=== PATIENT | female | born 1985 | race Caucasian/White ===

== ENCOUNTER 2016-11-02 20:53 | Outpatient (CLI) | payer MEDICAID ==
[~2016-11-02 20:53] MED LIST: PRENAT PO
--- NOTE | 2016-11-02 22:32 | HP ---
Date/Time of Note Date/Time of Note DATE: 11/02/16 TIME: 22:14 OB - History Hx of Present Free Text/Dictation Laborist Note G1 with IUP at 38 weeks who reports to L&D for labor evaluation. she denies LOF per vagina. she denies vaginal bleeding. she reports decreased FM. Care: Good Care Ultrasounds: Normal mid trimester US Obstetrical Complications: None Medical Complications: None Past Family/Social History * Past Medical, Surgical, Family and Obstetric Histories reviewed from chart. OB Admission Exam Physical Exam HEENT: WNL Heart: Rhythm Normal Lungs: Clear, Equal Abdomen: WNL Extremities: Normal Reflexes: Normal Cervical Dilatation: None Effacement: 0% Station: -2 Membranes: Intact Accelerations: Accelerations Present Decelerations: No Decelerations Varibility: Moderate OB Assessment/Plan Other Assessment: * 38 weeks * decreased movement * r/o labor Other plan: * BPP * NST * Labor evaluation. if no change in her cervix then she is in false labor and may be discharged home with FKC and labor precautions. she agrees with this management. HITESH GONZALEZ MD Nov 02, 2016 22:25
--- NOTE | 2016-11-02 23:43 | RADRPT ---
PROCEDURE: US biophysical profile. CLINICAL INDICATION: DFM well-being. TECHNIQUE: Multiple sonographic images of the uterus were obtained. The images were revi ewed on a PACS workstation. COMPARISON: No prior studies are available for comparison. FINDINGS: There is a single live intrauterine gestation. heart rate is 148 beats per minute. The position is cephalic. The placenta is anterior, grade 2. The RAVINDRA is 19.5 cm. Breathing Movement: 2 Gross Body Movement: 2 Tone: 2 Qualitative Amniotic Fluid Volume: 2 TOTAL: 8 IMPRESSION: 1. Single viable intrauterine gestation. 2. Biophysical profile = 02/10. 3. RAVINDRA = 19.5 cm. RPTAT: HFN .Delroy Mullins MD, MD Date Time Electronically viewed and signed by .Delroy Mullins MD, MD on 11/02/2016 23:42 .N/
--- NOTE | 2016-11-03 01:42 | TRIAGE ---
OB Triage Datetime Report Generated by CPN: 11/03/2016 01:41 Datetime: 11/02/2016 23:45 Stage of : OB Triage Labor Evaluation Frequency: 0 Monitor Mode: External Duration (sec)2399: 0 Pattern: Normal: <= 5 Contractions in 10 Minutes Resting Tone [place]: Relaxed Contraction Comments: uterine irritiability noted. Heart Rate FHR Baseline Rate: 125 Monitor Mode: External US Variability: Moderate 6-25 bpm Accelerations: 15X15 Decelerations: None Category: Category I Pain Assessment Pain Scale: 0 Pain Presence: None/Denies Pain Type: N/A Pain Goal: 0 Datetime: 11/02/2016 23:00 Stage of : OB Triage Labor Evaluation Frequency: 0 Monitor Mode: External Duration (sec)2399: 0 Pattern: Normal: <= 5 Contractions in 10 Minutes Resting Tone [place]: Relaxed Heart Rate FHR Baseline Rate: 140 Monitor Mode: External US Variability: Moderate 6-25 bpm Accelerations: 15X15 Decelerations: None Category: Category I Datetime: 11/02/2016 22:42 Stage of : OB Triage Datetime: 11/02/2016 22:31 Time of Arrival: 11/02/2016 20:55 EGA: 38.3 Arrived By: Wheelchair Arrived From: Home Chief Complaint: UCS SINCE 1700, DFM Movement: Decreased Contractions: Irregular Time Contractions Began: 11/02/2016 17:00 Contractions: IRREGULAR Rupture of Membranes: Denies Vaginal Bleeding: None Vaginal Discharge: Denies Recent Sexual Intercouse: Denies Abdominal Trauma: Not Applicable Patient Complaints: Contractions Time Provider Notified: 11/03/2016 21:45 Provider Notified: Andrzej Initial Plan: VS, EFM, SVE, BPP Datetime: 11/02/2016 22:12 Stage of : OB Triage Datetime: 11/02/2016 22:00 Stage of : OB Triage Labor Evaluation Frequency: occasional Monitor Mode: External Duration (sec)2399: 70-90 Quality: Mild Pattern: Normal: <= 5 Contractions in 10 Minutes Resting Tone [place]: Relaxed Contraction Comments: pt. denies feeling UC's at this time. Heart Rate FHR Baseline Rate: 145 Monitor Mode: External US Variability: Moderate 6-25 bpm Accelerations: 15X15 Decelerations: None Category: Category I Pain Assessment Pain Scale: 0 Pain Presence: None/Denies Pain Type: N/A Pain Goal: 0 Datetime: 11/02/2016 21:30 Maternal Assessment Level of Consciousness: Fully Conscious DTR's/Clonus: DTRs 2+ Headache: Denies Blurred Vision: No Respiratory Effort: Unlabored Breath Sounds, Left: Clear and Equal Breath Sounds, Right: Clear and Equal Nausea/Vomiting: Denies RUQ Epigastric Pain: Denies Facial Edema: None Labor Evaluation Frequency: X1 WITH UTERINE IRRITABILITY Monitor Mode: External Duration (sec)2399: 10 OR 60 Quality: Mild Pattern: Normal: <= 5 Contractions in 10 Minutes Resting Tone [place]: Relaxed Heart Rate FHR Baseline Rate: 145 Monitor Mode: External US FHR Baseline Changes: No Baseline Change Variability: Moderate 6-25 bpm Accelerations: None Decelerations: None Category: Category I Vaginal Exam Dilatation (cms): 0.0 Effacement (%): 30 Station: -3 Exam By: DENNYS MARINO RN Membrane Status: Intact Vaginal Bleeding: None Cervix, Consistency: Soft Cervix, Position: Posterior Presentation 'A': Cephalic Lie 'A': Unable to Assess Datetime: 11/02/2016 21:06 Stage of : OB Triage Monitor Mode: External Monitor Mode: External US Datetime: 07/01/2016 09:00 Monitor Mode: External Resting Tone [place]: Relaxed Datetime: 07/01/2016 07:57 Time of Arrival: 11/02/2016 20:50 EGA: 38.3 Arrived By: Wheelchair Arrived From: Home Chief Complaint: C/O UTCS SINCE 1700 WITH 4/10, LOOSE STOLLS X 3 DAYS WITH EARLY MILD CRAMPING Movement: Present Contractions: Regular Time Contractions Began: 11/02/2016 17:00 Contractions: 2-3 Rupture of Membranes: Denies Vaginal Bleeding: None Vaginal Discharge: Denies Patient Complaints: Contractions; Cramping Additional Patient Complaints: PT STATES FETAS "NOT MOVING" Initial Plan: VSS, MONITORING OF FHR AND UTERINE ACTIVITY, OB ASSESSMENT, HX Datetime: 07/01/2016 07:53 Fall Risk Assessment Fall Score: 0 Fall Risk Score Definition: No Risk: No action required
== END 2016-11-02 23:55 | disposition home or self-care (01) ==
LOC: OBT 20:53 → L-D 20:54 → OBT 23:55
PROVIDERS: ATTEND Obstetrics & Gynecology
DX: O36.8130 Decreased fetal movements, third trimester, not applicable or unspecified (principal); Z3A.38 38 weeks gestation of pregnancy
CPT/HCPCS: 76818; Z7500; G0463

== ENCOUNTER 2016-11-12 13:40 | Outpatient (CLI) | payer MEDICAID ==
[~2016-11-12] VITALS: Ht 149.9 cm; Wt 70.8 kg
[2016-11-12 14:33] VITALS: BP 125/83; PULSE 88; RESP 16; Ht 149.9 cm; Wt 70.8 kg
--- NOTE | 2016-11-12 15:12 | HP ---
Date/Time of Note Date/Time of Note DATE: 11/12/16 TIME: 15:07 OB - History Hx of Present Free Text/Dictation OB Triage Pt is a 30yo G1 at 39+4 presenting with c/o painful UCs since 08 approx q20 min. Feels UCs have spaced out since she has been in triage. Reports normal FM, denies VB or LOF. Estimated Due Date: November 15, 2016 : 1 Care: Good Care Obstetrical Complications: None OB Admission Exam Vital Signs Vital Signs Vital Signs Date Time Temp Pulse Resp B/P Pulse Ox O2 Delivery O2 Flow Rate FiO2 11/12/16 14:33 98.1 88 16 125/83 Physical Exam Cervical Dilatation: other (Fingertip) Effacement: 0% Station: -3 (posterior) Heart Rate: 140's (baseline change to 130s) Accelerations: Accelerations Present Decelerations: No Decelerations Varibility: Moderate Contractions on Admission: 6-10 Minutes Apart (irregular UCs) OB Assessment/Plan Other Assessment: Contractions w/o labor Reactive NST Other plan: Pt appropriate for d/c home with outpatient f/up as scheduled tomorrow Labor, ROM and FKC precautions reviewed Pt verbalized understanding of teaching VIVIANE DUVALL MD November 12, 2016 15:12
--- NOTE | 2016-11-12 15:43 | TRIAGE ---
OB Triage Datetime Report Generated by CPN: 11/12/2016 15:43 Datetime: 11/12/2016 15:15 Labor Evaluation Frequency: 4 Monitor Mode: External Duration (sec)2399: 60-80 Quality: Mild Pattern: Normal: <= 5 Contractions in 10 Minutes Resting Tone [place]: Relaxed Heart Rate FHR Baseline Rate: 135 Monitor Mode: External US Variability: Moderate 6-25 bpm Accelerations: 15X15 Decelerations: None Category: Category I Pain Assessment Pain Scale: 3 Pain Presence: Intermittent Pain Type: Contraction Pain Location: Abdomen Pain Goal: 3 Datetime: 11/12/2016 14:56 Labor Evaluation Frequency: 145 Monitor Mode: External Quality: Mild Pattern: Normal: <= 5 Contractions in 10 Minutes Resting Tone [place]: Relaxed Heart Rate FHR Baseline Rate: 145 Monitor Mode: External US Variability: Moderate 6-25 bpm Accelerations: 15X15 Decelerations: None Category: Category I Pain Assessment Pain Scale: 5 Pain Presence: Intermittent Pain Type: Contraction Pain Location: Abdomen Pain Goal: 3 Datetime: 11/12/2016 14:35 Vaginal Exam Dilatation (cms): 0.5 Exam By: wliu Datetime: 11/12/2016 14:31 Assessment Type: Triage Maternal Assessment Level of Consciousness: Fully Conscious DTR's/Clonus: DTRs 2+; No Clonus Headache: Denies Blurred Vision: No Respiratory Effort: Unlabored; Regular Rhythm; Equal Expansion Breath Sounds, Left: Clear and Equal Breath Sounds, Right: Clear and Equal Nausea/Vomiting: Denies RUQ Epigastric Pain: Denies Facial Edema: None Fall Risk Assessment History of Falling: (0) No Secondary Diagnosis: (0) No Ambulatory Aid: (0) Bedrest/Nurse Assist IV Therapy: (0) No Gait: (0) Normal/Bedrest/Immobile Mental Status: (0) Oriented to Own Ability Fall Score: 0 Fall Risk Score Definition: No Risk: No action required Datetime: 11/12/2016 14:30 Time of Arrival: 11/12/2016 13:30 EGA: 39.4 Arrived By: Ambulatory Arrived From: Home Chief Complaint: Pt. came to hospital c/o uc since 0830am, q 20mins apart, pain level 5/10, deny v ag. bleeding, deny srom Movement: Present Contractions: Irregular Rupture of Membranes: Denies Vaginal Bleeding: None Vaginal Discharge: Denies Recent Sexual Intercouse: Denies Abdominal Trauma: Not Applicable Patient Complaints: Contractions Time Provider Notified: 11/12/2016 14:54 Provider Notified: Initial Plan: r/o labor Datetime: 11/02/2016 22:31 EGA: 38.1 Datetime: 07/01/2016 07:57 EGA: 38.1 Datetime: 07/01/2016 07:53 Fall Score: 0 Fall Risk Score Definition: No Risk: No action required
== END 2016-11-12 15:26 | disposition home or self-care (01) ==
LOC: OBT 13:40 → L-D 13:41 → OBT 15:26
PROVIDERS: ATTEND Obstetrics & Gynecology
DX: O62.9 Abnormality of forces of labor, unspecified (principal); Z3A.39 39 weeks gestation of pregnancy

== ENCOUNTER 2016-11-18 23:35 | Inpatient (IN) | payer MEDICAID ==
[~2016-11-18] VITALS: Ht 149.9 cm; Wt 70.7 kg
[2016-11-18 23:57] VITALS: Ht 149.9 cm; Wt 70.7 kg
[2016-11-18 23:58] VITALS: BP 134/74; PULSE 86; RESP 18
[2016-11-19] MEDS ORDERED: IBUPROFEN 600 MG TAB PO PRN (00:30)
[2016-11-19] MEDS ORDERED: MISOPROSTOL 200 MCG TAB PR PRN ×2 (00:30→23:00)
[2016-11-19] MEDS ORDERED: BUTORPHANOL 2 MG INJ IV PRN ×2 (00:30)
[2016-11-19] MEDS ORDERED: CARBOPROST 250 MCG INJ IM PRN ×2 (00:30→23:00)
[2016-11-19] MEDS ORDERED: METHYLERGONOVINE 0.2 MG INJ IM PRN ×2 (00:30→23:00)
[2016-11-19] MEDS ORDERED: OXYTOCIN 30 UNITS/LR 500 ML IV PRN ×2 (00:30→23:00)
[2016-11-19] MEDS ORDERED: OXYTOCIN 30 UNITS/LR 500 ML IV SCH ×3 (00:30→10:00)
[2016-11-19] MEDS ORDERED: LIDOCAINE 1% (MPF) 30 ML INJ INJ PRN (00:30)
[2016-11-19] MEDS ORDERED: ACETAMINOPHEN/CODEINE #3 TAB PO PRN (00:30)
[2016-11-19] MEDS ORDERED: LACTATED RINGER'S 1,000 ML IV PRN (00:36)
--- NOTE | 2016-11-19 00:42 | HP ---
Date/Time of Note Date/Time of Note DATE: 11/19/16 TIME: 00:38 OB - History Hx of Present Chief Complaint: contractions Estimated Due Date: November 15, 2016 : 1 Para: 0 Spontaneous : 0 Therapeutic : 0 Care: Good Care Ultrasounds: Normal mid trimester US Obstetrical Complications: None Medical Complications: None Past Family/Social History * Past Medical, Surgical, Family and Obstetric Histories reviewed from chart. GBS Status: Negative OB Admission Exam Vital Signs Vital Signs Vital Signs Date Time Temp Pulse Resp B/P Pulse Ox O2 Delivery O2 Flow Rate FiO2 11/18/16 23:58 98.3 86 18 134/74 Room Air Physical Exam HEENT: WNL Heart: Rhythm Normal Lungs: Clear Abdomen: WNL Extremities: Normal Cervical Dilatation: 1cm Effacement: 75% Station: -2 Membranes: Intact Heart Rate: 140's Accelerations: Accelerations Present Decelerations: No Decelerations Varibility: Moderate RAJESH PALMA MD November 19, 2016 00:42
[2016-11-19] MEDS: LACTATED RINGER'S 1,000 ML IV SCH ×4 (01:09→19:57)
[2016-11-19 02:10] LABS: ADD SCAN DIFF NO
[2016-11-19 02:17] LABS: BASOPHILS % 0.3 % (0.0-2.0); EOSINOPHILS # 0.1 10^3/ul (0.0-0.5); EOSINOPHILS % 0.8 % (0.0-7.0); HEMATOCRIT 37.9 % (37.0-47.0); HEMOGLOBIN 12.9 g/dl (12.0-16.0); LYMPHOCYTES # 2.2 10^3/ul (0.8-2.9); LYMPHOCYTES % 22.2 % (15.0-51.0); MEAN CORPUSCULAR HEMOGLOBIN 31.9 pg (29.0-33.0); MEAN CORPUSCULAR VOLUME 93.8 fl (82.0-101.0); MEAN PLATELET VOLUME 11.6 fl (7.4-10.4); MONOCYTE # 0.7 10^3/ul (0.3-0.9); MONOCYTES % 7.5 % (0.0-11.0); NEUTROPHIL # 6.8 10^3/ul (1.6-7.5); NEUTROPHILS % 68.5 % (39.0-77.0); PLATELET COUNT 261 10^3/UL (140-415); RED BLOOD COUNT 4.04 10^6/ul (4.20-5.40); RED CELL DISTRIBUTION WIDTH 13.7 % (11.5-14.5); WHITE BLOOD COUNT 9.9 10^3/ul (4.8-10.8)
[2016-11-19 02:30] LABS: INR 0.92; PARTIAL THROMBOPLASTIN TIME 29.7 Sec (25.0-35.0); PROTIME 12.4 Sec (12.2-14.2)
--- NOTE | 2016-11-19 02:46 | TRIAGE ---
OB Triage Datetime Report Generated by CPN: 11/19/2016 02:45 Datetime: 11/19/2016 02:20 Assessment Type: Admission Assessment Vaginal Bleeding: None Maternal Assessment Level of Consciousness: Fully Conscious DTR's/Clonus: DTRs 2+; No Clonus Headache: Denies Blurred Vision: No Respiratory Effort: Unlabored; Regular Rhythm; Equal Expansion Nausea/Vomiting: Denies RUQ Epigastric Pain: Denies Lower Extremities Edema: Bilateral Lower Extremities Degree: 1+ Upper Extremities Edema: None Degree: None Facial Edema: None Fall Risk Assessment History of Falling: (0) No Secondary Diagnosis: (0) No Ambulatory Aid: (0) Bedrest/Nurse Assist IV Therapy: (0) No Gait: (0) Normal/Bedrest/Immobile Mental Status: (0) Oriented to Own Ability Fall Score: 0 Fall Risk Score Definition: No Risk: No action required Pain Assessment Pain Scale: 8 Pain Presence: Intermittent Pain Type: Contraction Pain Location: Abdomen; Back Pain Goal: 2 Membrane Status: Intact Datetime: 11/19/2016 01:20 Monitor Mode: External Contraction Comments: MONITOR FLIPPED OVER Heart Rate FHR Baseline Rate: 145 Monitor Mode: External US FHR Baseline Changes: No Baseline Change Variability: Moderate 6-25 bpm Accelerations: 15X15 Decelerations: None Category: Category I Datetime: 11/19/2016 00:32 Vaginal Exam Dilatation (cms): 1.0 Effacement (%): 80 Station: -3 Exam By: A ABRAM Cervix, Consistency: Soft Cervix, Position: Posterior Datetime: 11/19/2016 00:30 Labor Evaluation Frequency: IRREGULAR Monitor Mode: External Duration (sec)2399: 40-100 Quality: Mild Pattern: Normal: <= 5 Contractions in 10 Minutes Resting Tone [place]: Relaxed Heart Rate FHR Baseline Rate: 145 FHR Baseline Changes: No Baseline Change Variability: Moderate 6-25 bpm Accelerations: 15X15 Decelerations: None Category: Category I Datetime: 11/18/2016 23:51 Stage of : OB Triage Vaginal Exam Dilatation (cms): 0.0 Effacement (%): 0 Station: -3 Exam By: SANTIAGO ALBERTS Vaginal Bleeding: None Cervix, Consistency: Soft Cervix, Position: Posterior Datetime: 11/18/2016 23:47 Stage of : OB Triage Time of Arrival: 11/18/2016 23:36 EGA: 40.3 Arrived By: Wheelchair Arrived From: Home Chief Complaint: CONTRACTIONS SINCE 1800 Movement: Present Contractions: Irregular Time Contractions Began: 11/18/2016 18:00 Rupture of Membranes: Denies Vaginal Bleeding: None Vaginal Discharge: Denies Recent Sexual Intercouse: Yes Abdominal Trauma: Not Applicable Patient Complaints: None Time Provider Notified: 11/18/2016 23:51 (Annotations: Data stored by N on behalf of user) Provider Notified: DR PALMA Initial Plan: CALL TORRI MCELROY Maternal Assessment Level of Consciousness: Fully Conscious DTR's/Clonus: DTRs 2+; No Clonus Headache: Denies Blurred Vision: No Respiratory Effort: Unlabored; Regular Rhythm; Equal Expansion Breath Sounds, Left: Clear and Equal Breath Sounds, Right: Clear and Equal Nausea/Vomiting: Denies RUQ Epigastric Pain: Denies Lower Extremities Edema: Bilateral Lower Extremities Degree: 1+ Upper Extremities Edema: None Degree: None Facial Edema: None Temperature Route: Oral Fall Risk Assessment History of Falling: (0) No Secondary Diagnosis: (0) No Ambulatory Aid: (0) Bedrest/Nurse Assist IV Therapy: (0) No Gait: (0) Normal/Bedrest/Immobile Mental Status: (0) Oriented to Own Ability Fall Score: 0 Fall Risk Score Definition: No Risk: No action required Monitor Mode: External Monitor Mode: External US Pain Assessment Pain Scale: 7 Pain Presence: Intermittent Pain Type: Contraction Pain Location: Abdomen; Back Datetime: 11/12/2016 14:31 Fall Score: 0 Fall Risk Score Definition: No Risk: No action required Datetime: 11/12/2016 14:30 EGA: 39.4 Datetime: 11/02/2016 22:31 EGA: 38.1 Datetime: 07/01/2016 07:57 EGA: 38.1 Datetime: 07/01/2016 07:53 Fall Score: 0 Fall Risk Score Definition: No Risk: No action required
[2016-11-19] MEDS ORDERED: FENTAnyl 2MCG/ML-ROPIV 0.2% 100 ML ONE (08:00)
--- NOTE | 2016-11-19 10:41 | RADRPT ---
PROCEDURE: US OB. CLINICAL INDICATION: Macrosomia TECHNIQUE: Multiple sonographic images of the pelvis were obtained. Transabdominal imaging only w as performed. The images were reviewed on a PACS workstation. COMPARISON: No prior studies are available for comparison. FINDINGS: There is a single live intrauterine gestation. Cardiac activity is present with 144 beats per minut e. position is cephalic. Measurements were made in order to determine age. The results are as follows: BPD = 8.97 cm HC = 32.97 cm AC = 35.65 cm FL = 7.23 cm. Estimated gestational age of approximately 37 weeks 4 days. The estimated date of delivery is 12/06/2016. The EFW = 3471 g, 30 %ile. The placenta is anterior. There is no evidence for an abruption or placenta previa. There are no adnexal masses. IMPRESSION: 1. Single live intrauterine gestation of approximately 37 weeks 4 days, by ultrasound criteria. 2. The estimated date of delivery is 12/06/2016. 3. The estimated weight is 3471 g, 30th %ile. RPTAT: HH .Jackie Dc MD, Date Time Electronically viewed and signed by .Jackie Dc MD, on 11/19/2016 10:41 .G/
[2016-11-19] MEDS ORDERED: ONDANSETRON 4 MG INJ IV PRN ×2 (11:00→21:00)
[2016-11-19] MEDS ORDERED: NALOXONE (0.4 MG/ML) INJ IV PRN ×2 (11:00→21:00)
[2016-11-19] MEDS ORDERED: FENTAnyl 2MCG/ML-ROPIV 0.2% 100 ML BAG EPI SCH (11:00)
[2016-11-19] MEDS ORDERED: DIPHENHYDRAMINE 50 MG INJ IV PRN ×2 (11:00→21:00)
[2016-11-19] MEDS ORDERED: GENTAMICIN 80 MG/NS (PMX) 50 ML IVPB SCH (18:30)
[2016-11-19] MEDS ORDERED: AMPICILLIN 2 GM/NS (PMX) 100 ML IVPB ONE (18:30)
[2016-11-19] MEDS ORDERED: ACETAMINOPHEN 650 MG SUPP PR ONE (19:00)
--- NOTE | 2016-11-19 19:00 | PN ---
Date/Time of Note Date/Time of Note DATE: 11/19/16 TIME: 18:54 OB Subjective Subjective Subjective Patient has been managed during labor by Dr. Nolen until 5: 45. RN called to evaluate the patient due to maternal fever.She is s/p AROM by DR. Nolen earlier. GBS negaive. Apprarently had 2 + Mec. Went to the patient's bed side. Has epidural and is comfortable. heart tracing reviewed. tachycardia to 170s-180s noted. Maternal tachycardia noted as well 116. Variability moderate. Some variable but without late deceleration noted. Tracing consistently category 2. Patient denies any chills. OB Objective Objective Objective GA: Alert and oriented 4 appears to be in moderate distress Center vaginal examination: 580/-1, vertex Comparison by last examination at 1:00 no cervical change noted in 5 and half hours. Patient has adequate contraction. This is consistent with areas of labor OB Assessment/Plan Reason for admission: active labor Other Assessment: IUP at 41 week Undergoing induction for postdates Status post AROM, maternal fever and tachycardia consistent with chorioamnionitis Secondary areas of labor noted heart tracing category 2 Blood culture and urine culture ordered Due to no cervical change in 5 and half hours in the context of chorioamnionitis , recommend a section Risk and benefit of section including risk of infection, bleeding, damage to surrounding structures including bowel and bladder and risk of blood transfusion including but not limited to blood borne infection including HIV, hepatitis B and C and transfusion reactions discussed with the patient in detail. Informed consent was obtained. We will plan to start ampicillin and gentamicin as soon as possible. OR and anesthesia was notified Patient verbalized understanding all above risks and consented for the procedure. She accepts blood transfusion in case if necessary. All questions were answered to the patient's best satisfaction. PAOLA AKHTAR MD November 19, 2016 19:00
[2016-11-19] MEDS ORDERED: LIDOCAINE 2%/EPI 30 ML INJ ONE (19:29)
[2016-11-19] MEDS ORDERED: SODIUM BICARBONATE (IV ADD) 50 ML ONE (19:30)
[2016-11-19] MEDS ORDERED: FENTAnyl 50 MCG/ML VIAL ONE (19:30)
[2016-11-19] MEDS ORDERED: PHENYLephrine (100 MCG/ML) 5ML SYG ONE (20:06)
[2016-11-19] MEDS ORDERED: DEXAMETHASONE 4 MG/ML 1 ML INJ ONE (20:16)
[2016-11-19] MEDS ORDERED: morphine SULFATE/PF (10 MG/10 ML) INJ ONE (20:34)
[2016-11-19 20:54] LABS: AADO2 Cord Arterial 73.8 mmHg; Arterial Cord Blood pCO2 50.6 mmHG (25-50); CBA Base Excess -3.2 mmol/L; CBA Oxygen Sat 26.4 mmHG; Cord Blood Arterial pO2 15.3 mmHG (15.0-45.0); Fraction OxyHgb Cord Arterial 25.7 %; MODE ROOM AIR; MetHgb Cord Arterial 2.4 %
[2016-11-19 20:55] LABS: CBV Base Excess -6.7 mmol/L; CBV COHb 1.3 %; CBV Oxygen Sat 72.4 mmHG; CBV Total Hemglobin 15.5 g/dl; Cord Blood Venous pO2 31.9 mmHG (15.0-45.0); Fraction OxyHgb Cord Venous 70.6 %; MODE ROOM AIR; MetHgb Cord Venous 1.2 %; Sample Type Blood venous
[2016-11-19] MEDS ORDERED: KETOROLAC 30 MG INJ IV PRN (21:00)
[2016-11-19] MEDS ORDERED: HYDROmorphONE 1 MG/ML SYG IV PRN ×2 (21:00)
[2016-11-19] MEDS ORDERED: AMPICILLIN 1 GM/NS (PMX) 50 ML IVPB SCH (21:00)
[2016-11-19] MEDS ORDERED: ZOLPIDEM 5 MG TAB PO PRN (21:00)
--- NOTE | 2016-11-19 22:51 | OPR ---
Operative Report Planned Procedure Procedure date November 19, 2016 Procedure(s) Primary section for failure to progress and chorioamnioniits Performed by: PAOLA AKHTAR MD Assisting provider: YADIRA PETERSON Pre-procedure diagnosis IUP at 41 weeks Post date undergoing induction Failure to progress Maternal fever chorioamnionitis Anesthesia Type: epidural Procedure Description Under satisfactory [Epidural ] anesthesia, the patient was prepped and draped and placed in a supine position, tilted to the left. Pfannenstiel incision was made, carried through the subcutaneous tissue. Bleeders brought under control with electrocautery. Fascia incised to the length of the incision. Rectus muscles from the fascia, divided midline. Peritoneum exposed, entered through a transverse incision. Exploration of abdomen revealed gravid uterus. Bladder flap was developed. Transverse incision was made in the lower segment of the uterus. Amniotic sac ruptured. [2+ Meconium noted] baby 's head was noted to be in OP position and was then rotated to OA and was brought up to the incision and was delivred. after delivery of the head, first anterior shoulder and then posterior shoulder and the rest of the body delivered without any complication. [] Nasal oropharyngeal suction was performed. The baby was handed to the team for immediate attention. The placenta was delivered manually intact.Placenta then was sent to pahtology and culture. Uterine cavity was cleaned with wet sponge and drainage established. Uterus closed in 2 layers using 1-0 Monocryl in 2 layers[] in continuous fashion. Peritoneal cavity irrigated with warm saline. Sponge, needle and instrument count reported to be correct. Abdominal peritoneum closed with 2-0 vicryl[] continuously. Rectus muscle approximated with 2-0 vicryl []. Fascia closed with 1-0 vicryl [] , and skin closed with tara. Estimated blood loss [600 ]ml. Post-Procedure Findings: Live Baby [], Apgars [] and [], weight [], position [], [] presentation []cord. Specimen removed: Yes Complications: None Pt Condition post procedure: stable Disposition: PACU Physician Certification I, the undersigned physician, hereby certify that I have discussed the procedure described in this consent form with this patient (or the patient's legal claims representative), including: * The risk and benefits of the procedure; * Any adverse reactions that may reasonably be expected to occur; * Any alternative efficacious methods of treatment which may be medically viable ; * The potential problems that may occur during recuperation; * Potential for blood transfusion and associated risks/benefits; and * Any research or economic interest I may have regarding this treatment. I further certify that the patient/legally responsible person was encouraged to ask question and that all questions were answered. PAOLA AKHTAR MD November 19, 2016 22:51
[2016-11-19] MEDS ORDERED: LANOLIN 7 GM TUBE TOP PRN (23:00)
[2016-11-19] MEDS ORDERED: CLINDAMYCIN 900 MG/D5W (PMX) 50 ML IV ONE (23:00)
[2016-11-19] MEDS ORDERED: GENTAMICIN 270 MG in SOD CHLORIDE 0.9% 100 ML IVPB SCH (23:00)
--- NOTE | 2016-11-19 23:06 | DELSUM ---
Delivery Summary A-C Datetime Report Generated by CPN: 11/19/2016 23:06 DELIVERY PERSONNEL Metal Weather Stripper: Doshi, Agnes MATERNAL INFORMATION Delivery Anesthesia: Epidural Medications in Delivery: See anesthesia record Estimated Blood Loss (ml): 600 Placenta Cultured: Yes Maternal Complications: Chorioamnionitis; Maternal Fever LABOR SUMMARY EDC: 11/15/2016 00:00 No. Babies in Womb: 0 Attempted: No Labor Anesthesia: Epidural LABOR INFORMATION Reason for Induction: Not Applicable Onset of Labor: 11/18/2016 18:00 Oxytocin: Augmentation Group B Beta Strep: Negative Antibiotics # of Doses: 2 Antibiotics Time of Last Dose: 11/19/2016 19:20 Steroids Given: None Reason Steroids Not Administered: Not Applicable MEMBRANES Membranes Rupture Method: Artificial Rupture of Membranes: 11/19/2016 09:28 Length of Rupture (hr): 11.05 Amniotic Fluid Color: Light Meconium Amniotic Fluid Amount: Moderate Amniotic Fluid Odor: None STAGES OF LABOR Stage 3 hr: 0 Stage 3 min: 1 Total Time in Labor hr: 26 Total Time in Labor min: 32 CSECTION DELIVERY Primary Indication: Nonreassuring Stat Other Primary Indication: Chorioamnionitis Secondary Indication: Failure of Descent CSection Urgency: Emergency CSection Incidence: Primary Labor: Labor Elective: Elective CSection Incision: Lower Uterine Transverse BABY A INFORMATION Infant Delivery Date/Time: 11/19/2016 20:31 Method of Delivery: Born in Route : No : N/A Forceps: N/A Vacuum Extraction: N/A Shoulder Dystocia : N/A (Annotations: Data stored by [facility] on behalf of user) SHOULDER DYSTOCIA BABY A Delivery Date/Time: 11/19/2016 20:31 PRESENTATION/POSITION BABY A Presentation: Cephalic Presentation: Cephalic Cephalic Presentation: Vertex Breech Presentation: N/A PLACENTA INFORMATION BABY A Placenta Delivery Time : 11/19/2016 20:32 Placenta Method of Delivery: Manual Removal Placenta Status: Delivered SCORES BABY A Heart Rate 1 min: >100 bpm Resp Effort 1 min: Good Cry Reflex Irritability 1 min: Cough/Sneeze/Pulls Away Muscle Tone 1 min: Active Motion Color 1 min: Blue/Pale Resuscitation Effort 1 min: Tactile Stimulation SCORE 1 MIN: 8 Heart Rate 5 min: >100 bpm Resp Effort 5 min: Good Cry Reflex Irritability 5 min: Cough/Sneeze/Pulls Away Muscle Tone 5 min: Active Motion Color 5 min: Body [place], Extremit Blue Resuscitation Effort 5 min: N/A SCORE 5 MIN: 9 INFANT INFORMATION BABY A Gestational Age at Delivery: 40.4 Gestational Status: Full Term- 39- 40.6 Weeks Infant Outcome : Liveborn Condition : Stable Sex: Female IDENTIFICATION/MEDS BABY A ID Band Number: [id number] ID Band Location: Right Leg; Left Arm Sensor Applied: Yes Sensor Number: [id number] Sensor Location : Cord Clamp Vitamin K Given : Not Given Erythromycin Given: Not Given WEIGHT/LENGTH BABY A Infant Birthweight (gm): 4045 Infant Weight (lb): 8 Weight (oz): 15 Infant Length (in): 20.50 Length (cm): 52.07 CORD INFORMATION BABY A No. Cord Vessels: 3 Nuchal Cord : Around Neck x1, Loose Cord Blood Taken: Yes Infant Suction: Mouth; Nose ASSESSMENT BABY A Infant Complications: Meconium Physical Findings at Delivery: Caput Succedaneum; [place] Infant Respirations: Appears Normal Orchestrator/ALS Called : No Care By: NICU team Transferred To: Remains with Mother
[2016-11-20 00:30] VITALS: BP 113/62; PULSE 58; RESP 20
[2016-11-20 01:06] LABS: ADD SCAN DIFF NO
[2016-11-20 01:09] LABS: BASOPHILS % 0.1 % (0.0-2.0); HEMATOCRIT 37.3 % (37.0-47.0); HEMOGLOBIN 12.6 g/dl (12.0-16.0); LYMPHOCYTES # 0.7 10^3/ul (0.8-2.9); LYMPHOCYTES % 3.4 % (15.0-51.0); MEAN CORPUSCULAR HEMOGLOBIN 32.1 pg (29.0-33.0); MEAN CORPUSCULAR HGB CONC 33.8 g/dl (32.0-37.0); MEAN CORPUSCULAR VOLUME 94.9 fl (82.0-101.0); MEAN PLATELET VOLUME 11.9 fl (7.4-10.4); MONOCYTE # 0.7 10^3/ul (0.3-0.9); MONOCYTES % 3.6 % (0.0-11.0); NEUTROPHIL # 18.7 10^3/ul (1.6-7.5); NEUTROPHILS % 92.3 % (39.0-77.0); PLATELET COUNT 231 10^3/UL (140-415); RED BLOOD COUNT 3.93 10^6/ul (4.20-5.40); RED CELL DISTRIBUTION WIDTH 14.1 % (11.5-14.5); WHITE BLOOD COUNT 20.2 10^3/ul (4.8-10.8)
[2016-11-20] MEDS: OXYTOCIN 30 UNITS/LR 500 ML IV SCH ×2 (02:42→03:45)
[2016-11-20 03:45] VITALS: BP 97/51; PULSE 61; RESP 19
[2016-11-20] MEDS: IBUPROFEN 600 MG TAB PO SCH ×5 (05:54→23:32)
[2016-11-20 07:40] VITALS: BP 97/56; PULSE 77; RESP 16
[2016-11-20] MEDS: LACTATED RINGER'S 1,000 ML IV SCH ×4 (08:13→22:42)
[2016-11-20 08:19] LABS: ADD SCAN DIFF NO
[2016-11-20 08:35] LABS: BASOPHILS % 0.1 % (0.0-2.0); HEMATOCRIT 31.8 % (37.0-47.0); HEMOGLOBIN 10.6 g/dl (12.0-16.0); LYMPHOCYTES # 1.1 10^3/ul (0.8-2.9); MEAN CORPUSCULAR HEMOGLOBIN 31.7 pg (29.0-33.0); MEAN CORPUSCULAR HGB CONC 33.3 g/dl (32.0-37.0); MEAN CORPUSCULAR VOLUME 95.2 fl (82.0-101.0); MEAN PLATELET VOLUME 11.9 fl (7.4-10.4); MONOCYTE # 0.6 10^3/ul (0.3-0.9); MONOCYTES % 3.6 % (0.0-11.0); NEUTROPHIL # 13.8 10^3/ul (1.6-7.5); NEUTROPHILS % 88.7 % (39.0-77.0); PLATELET COUNT 212 10^3/UL (140-415); RED BLOOD COUNT 3.34 10^6/ul (4.20-5.40); RED CELL DISTRIBUTION WIDTH 14.1 % (11.5-14.5); WHITE BLOOD COUNT 15.6 10^3/ul (4.8-10.8)
[2016-11-20] MEDS: MULTIVIT/MIN/FOLATE/IRON/PREN TAB PO SCH (09:36)
[2016-11-20 11:53] VITALS: BP 85/47; PULSE 82; RESP 16
[2016-11-20] MEDS ORDERED: GENTAMICIN 80 MG/NS (PMX) 50 ML IVPB SCH (12:30)
[2016-11-20] MEDS: GENTAMICIN 80 MG/NS (PMX) 50 ML IVPB SCH ×2 (12:34→20:37)
[2016-11-20] MEDS: KETOROLAC 30 MG INJ IV SCH (12:38)
[2016-11-20 15:40] VITALS: BP 87/48; RESP 16
[2016-11-20] MEDS: CLINDAMYCIN 900 MG/D5W (PMX) 50 ML IVPB SCH ×2 (18:14→23:33)
[2016-11-20 19:50] VITALS: BP 92/50; PULSE 95; RESP 20
--- NOTE | 2016-11-20 20:21 | PN ---
Date/Time of Note Date/Time of Note DATE: 11/20/16 TIME: 20:19 OB Subjective Subjective Subjective post c section 1 afebrile abdomen soft bs present ,incision dry lochia normal ext nl Laboratory Tests Test 11/19/16 20:45 11/19/16 20:46 11/20/16 00:36 11/20/16 07:12 Blood Gas Specimen Source Blood arterial Blood venous Arterial Blood Date Drawn 11/19/2016 8:42:12 PM 11/19/2016 8:42:40 PM Arterial Blood Gas Puncture Site CORD CORD Elias Test N/A N/A Cord Blood Carboxyhemoglobin 0.2% 1.3% Cord Arterial Blood pH 7.292 Cord Arterial Blood PCO2 50.6mmHG Cord Arterial Blood PO2 15.3mmHG Cord Arterial Blood HCO3 23.9mmol/L Cord Arterial Blood Base Excess -3.2mmol/L POC Cord Arterial Blood O2 Sat 26.4mmHG Cord Arterial Blood Hemoglobin 15.0g/dl Cord Arterial Blood Oxyhemoglobin 25.7% Cord Arterial Blood Methemoglobin 2.4% Blood Gas A-a O2 Differential 73.8mmHg Blood Gas Temperature 37.0C 37.0C Blood Gas Modality ROOM AIR ROOM AIR FiO2 21.0% 21.0% Blood Gas Critical Value Read Back Trisha CORONEL RN Blood Gas Notified Whom CV C.V. Blood Gas Notified Time 11/19/2016 8:53:45 PM 11/19/2016 8:54:57 PM Cord Venous Blood pH 7.335 Cord Venous Blood PCO2 34.8mmHG Cord Venous Blood PO2 31.9mmHG Cord Venous Blood HCO3 18.1mmol/L Cord Venous Blood Base Excess -6.7mmol/L POC Cord Venous Blood Oxygen Sat 72.4mmHG Cord Venous Blood Hemoglobin 15.5g/dl Cord Venous Blood Oxyhemoglobin 70.6% Cord Venous Blood Methemoglobin 1.2% White Blood Count 20.210^3/ul 15.610^3/ul Red Blood Count 3.9310^6/ul 3.3410^6/ul Hemoglobin 12.6g/dl 10.6g/dl Hematocrit 37.3% 31.8% Mean Corpuscular Volume 94.9fl 95.2fl Mean Corpuscular Hemoglobin 32.1pg 31.7pg Mean Corpuscular Hemoglobin Concent 33.8g/dl 33.3g/dl Red Cell Distribution Width 14.1% 14.1% Platelet Count 04257^3/UL 91991^3/UL Mean Platelet Volume 11.9fl 11.9fl Neutrophils % 92.3% 88.7% Lymphocytes % 3.4% 7.0% Monocytes % 3.6% 3.6% Eosinophils % 0.0% 0.0% Basophils % 0.1% 0.1% Nucleated Red Blood Cells % 0.0/100WBC 0.0/100WBC Neutrophils # 18.710^3/ul 13.810^3/ul Lymphocytes # 0.710^3/ul 1.110^3/ul Monocytes # 0.710^3/ul 0.610^3/ul Eosinophils # 0.010^3/ul 0.010^3/ul Basophils # 0.010^3/ul 0.010^3/ul Nucleated Red Blood Cells # 0.010^3/ul 0.010^3/ul Current Medications Medications (Trade) Dose Ordered Sig/Rory Route PRN Reason Start Time Stop Time Status Last Admin Dose Admin Lactated Ringer's (Lr) 1,000 ml @ 125 mls/hr Q8H IV 11/19/16 00:09 11/19/16 22:45 DC 11/19/16 19:57 Butorphanol Tartrate (Stadol) 1 mg Q2H PRN IV PAIN 11/19/16 00:30 11/19/16 22:45 DC Butorphanol Tartrate (Stadol) 2 mg Q2H PRN IV PAIN 11/19/16 00:30 11/19/16 22:45 DC 11/19/16 04:24 Lidocaine 30 ml 30 ml ONCE PRN INJ EPISIOTOMY/TEARING 11/19/16 00:30 11/19/16 22:45 DC Oxytocin/Lactated Ringer's 500 ml @ 125 mls/hr ONCE -MAY REPEAT X1 IV 11/19/16 00:30 11/19/16 22:45 DC 11/19/16 22:05 Oxytocin/Lactated Ringer's 500 ml @ 125 mls/hr ONCE IV 11/19/16 00:30 11/19/16 22:46 DC Ibuprofen (Motrin) 600 mg ONCE PRN PO Mild Pain (Pain Score 1-3) 11/19/16 00:30 11/19/16 22:46 DC Acetaminophen/ Codeine Phosphate 2 tab 2 tab ONCE PRN PO Moderate to Severe Pain (4-10) 11/19/16 00:30 11/19/16 22:46 DC Lactated Ringer's 1,000 ml @ 2,000 mls/hr Q30M PRN IV PRE-EPIDURAL BOLUS 11/19/16 00:36 11/19/16 22:46 DC 11/19/16 07:45 Oxytocin/Lactated Ringer's 500 ml @ 0 mls/hr ONCE PRN IV For Hemorrhage Management 11/19/16 00:30 11/19/16 22:46 DC Methylergonovine Maleate (Methergine) 0.2 mg ONCE PRN IM VAGINAL BLEEDING 11/19/16 00:30 11/19/16 22:46 DC Carboprost Tromethamine (Hemabate) 250 mcg ONCE PRN IM VAGINAL BLEEDING 11/19/16 00:30 11/19/16 22:46 DC Misoprostol 1000 mcg 1,000 mcg ONCE PRN [place] VAGINAL BLEEDING 11/19/16 00:30 11/19/16 22:46 DC Fentanyl/ Ropivacaine 100 ml @ ud STK-MED ONCE .ROUTE 11/19/16 08:00 11/19/16 08:01 DC Oxytocin/Lactated Ringer's 500 ml @ 0 mls/hr Q0M IV 11/19/16 10:00 11/19/16 22:46 DC 11/19/16 10:33 Naloxone HCl (Narcan) 0.1 mg Q2M PRN IV FOR RESP RATE 8 OR LESS 11/19/16 11:00 11/19/16 22:46 DC Diphenhydramine HCl (Benadryl) 25 mg Q6H PRN IV ITCHING 11/19/16 11:00 11/19/16 22:46 DC Ondansetron HCl (Zofran Inj) 4 mg Q6H PRN IV NAUSEA AND/OR VOMITING 11/19/16 11:00 11/19/16 22:46 DC Fentanyl/ Ropivacaine 100 ml 100 ml EPIDURAL INFUSION EPI 11/19/16 11:00 11/19/16 22:46 DC 11/19/16 18:08 Ampicillin 100 ml @ 100 mls/hr ONCE ONCE IVPB 11/19/16 18:30 11/19/16 19:29 DC 11/19/16 18:45 Ampicillin 50 ml @ 100 mls/hr Q4 IVPB 11/19/16 21:00 11/19/16 22:46 DC Gentamicin Sulfate (Gentamicin) 50 ml @ 104 mls/hr Q8H IVPB 11/19/16 18:30 11/19/16 22:46 DC 11/19/16 19:20 Acetaminophen (Tylenol Supp) 650 mg ONCE ONCE [place] 11/19/16 19:00 11/19/16 19:01 DC 11/19/16 19:08 Lidocaine/ Epinephrine (Xylocaine 2%/ Epi) 30 ml STK-MED ONCE .ROUTE 11/19/16 19:29 11/19/16 19:30 DC Fentanyl 100 mcg 100 mcg STK-MED ONCE .ROUTE 11/19/16 19:30 11/19/16 19:31 DC Sodium Bicarbonate (Na Bicarb) 50 ml @ ud STK-MED ONCE .ROUTE 11/19/16 19:30 11/19/16 19:31 DC Phenylephrine HCl (Elijah-Synephrine Inj Syg) 500 mcg STK-MED ONCE .ROUTE 11/19/16 20:06 11/19/16 20:07 DC Dexamethasone (Decadron) 4 mg STK-MED ONCE .ROUTE 11/19/16 20:16 11/19/16 20:17 DC Morphine Sulfate (Duramorph) 10 mg STK-MED ONCE .ROUTE 11/19/16 20:34 11/19/16 20:35 DC Naloxone HCl (Narcan) 0.1 mg Q2M PRN IV FOR RESP RATE 8 OR LESS 11/19/16 21:00 11/20/16 20:35 Ketorolac Tromethamine (Toradol) 30 mg Q6H PRN IV PAIN 11/19/16 21:00 11/19/16 22:46 DC 11/19/16 22:07 Hydromorphone HCl (Dilaudid) 0.2 mg Q3H PRN IV PAIN LEVEL 1-5 11/19/16 21:00 11/20/16 20:35 Hydromorphone HCl (Dilaudid) 0.4 mg Q3H PRN IV PAIN LEVEL 6-10 11/19/16 21:00 11/20/16 20:35 Diphenhydramine HCl (Benadryl) 25 mg Q6H PRN IV ITCHING 11/19/16 21:00 11/20/16 20:35 Ondansetron HCl (Zofran Inj) 4 mg Q6H PRN IV NAUSEA AND/OR VOMITING 11/19/16 21:00 11/20/16 20:35 Zolpidem Tartrate (Ambien) 5 mg HS MAY REPEAT X 1 PRN PO INSOMNIA 11/19/16 21:00 11/20/16 20:35 Miscellaneous Information Duramorph: 4 mg Epidu... GIVEN XX 11/19/16 21:00 11/19/16 21:00 DC Lactated Ringer's 1,000 ml @ 125 mls/hr Q8H IV 11/19/16 22:42 11/20/16 17:08 Clindamycin HCl/ Dextrose 50 ml @ 50 mls/hr ONCE ONCE IV 11/19/16 23:00 11/19/16 23:59 DC 11/20/16 00:32 Gentamicin Sulfate 270 mg/ Sodium Chloride 106.75 ml @ 106.75 mls/hr ONCE IVPB 11/19/16 23:00 11/20/16 11:56 DC 11/20/16 01:39 Oxytocin/Lactated Ringer's 500 ml @ 125 mls/hr Q4H IV 11/19/16 22:42 11/20/16 06:41 DC 11/20/16 03:45 Acetaminophen/ Codeine Phosphate (Tylenol No.3) 1 tab Q4H PRN PO PAIN LEVEL 4-6 11/19/16 23:00 Ibuprofen (Motrin) 600 mg Q6 PO 11/20/16 00:00 Simethicone (Mylicon) 160 mg Q8H PRN PO DISTENSION/GAS/BLOATING 11/19/16 23:00 Lanolin ([id number]) 1 applic BEDSIDE MEDICATION PRN TOP BEDSIDE FOR IRMA TO NIPPLES 11/19/16 23:00 Measles/Mumps/ Rubella Vaccine Live 0.5 ml 0.5 ml ONCE ONCE SC* 11/22/16 09:00 11/22/16 09:01 Oxytocin/Lactated Ringer's 500 ml @ 0 mls/hr ONCE PRN IV For Hemorrhage Management 11/19/16 23:00 Methylergonovine Maleate (Methergine) 0.2 mg ONCE PRN IM VAGINAL BLEEDING 11/19/16 23:00 Carboprost Tromethamine (Hemabate) 250 mcg ONCE PRN IM VAGINAL BLEEDING 11/19/16 23:00 Misoprostol (Cytotec) 1,000 mcg ONCE PRN [place] VAGINAL BLEEDING 11/19/16 23:00 Prenat Multivit/ Mchenry/Iron/Folic Ac 1 tab 1 tab DAILY PO 11/20/16 09:00 11/20/16 09:36 Gentamicin Sulfate 50 ml @ 104 mls/hr Q8H IVPB 11/20/16 12:30 11/20/16 12:34 Clindamycin HCl/ Dextrose (Cleocin 900 Mg/ D5W (Pmx)) 50 ml @ 50 mls/hr Q6 IVPB 11/20/16 18:00 11/20/16 18:14 Ketorolac Tromethamine 30 mg 30 mg ONCE IV 11/20/16 12:30 11/23/16 12:29 11/20/16 12:38 Gentamicin Sulfate (Gentamicin) 50 ml @ 104 mls/hr Q8H IVPB 11/20/16 12:30 11/20/16 12:30 ANUEL PEÑA MD November 20, 2016 20:21
[2016-11-21 04:00] VITALS: BP 90/48; PULSE 86; RESP 18
[2016-11-21] MEDS: GENTAMICIN 80 MG/NS (PMX) 50 ML IVPB SCH ×3 (04:46→20:57)
[2016-11-21] MEDS: CLINDAMYCIN 900 MG/D5W (PMX) 50 ML IVPB SCH ×3 (05:21→17:27)
[2016-11-21] MEDS: IBUPROFEN 600 MG TAB PO SCH ×3 (05:21→17:26)
[2016-11-21] MEDS: LACTATED RINGER'S 1,000 ML IV SCH ×3 (06:10→22:42)
[2016-11-21 08:00] VITALS: BP 101/67; PULSE 79; RESP 16
--- NOTE | 2016-11-21 08:29 | OPPN ---
Date/Time of Note Date/Time of Note DATE: 11/21/16 TIME: 08:29 Post-Anesthesia Notes Post-Anesthesia Note Last documented vital signs Vital Signs Date Time Temp Pulse Resp B/P Pulse Ox O2 Delivery O2 Flow Rate FiO2 11/21/16 04:00 98.0 86 18 90/48 Room Air 11/20/16 15:10 97 21 Activity: WNL Respiratory function: WNL Cardiovascular function: WNL Mental status: Baseline Pain reasonably controlled: Yes Hydration appropriate: Yes Nausea/Vomiting absent: Yes KARLOS HOFFMAN November 21, 2016 08:29
[2016-11-21] MEDS ORDERED: SENNA TAB PO PRN (08:30)
[2016-11-21] MEDS: ACETAMINOPHEN/CODEINE #3 TAB PO PRN ×2 (08:35→14:54)
[2016-11-21] MEDS: MULTIVIT/MIN/FOLATE/IRON/PREN TAB PO SCH (08:40)
--- NOTE | 2016-11-21 08:46 | PN ---
Date/Time of Note Date/Time of Note DATE: 11/21/16 TIME: 08:43 OB Subjective Subjective Subjective Post day 2 Afebrile temperature has been normal since the delivery by , abdomen soft incision dry good bowel sounds no bowel movement ambulation encouraged enema recommended, blood and urine culture has been negative on preliminary, currently on clindamycin and gentamicin with continue antibiotic for today if patient afebrile may discontinue am Current Medications Medications (Trade) Dose Ordered Sig/Rory Route PRN Reason Start Time Stop Time Status Last Admin Dose Admin Lactated Ringer's (Lr) 1,000 ml @ 125 mls/hr Q8H IV 11/19/16 00:09 11/19/16 22:45 DC 11/19/16 19:57 Butorphanol Tartrate (Stadol) 1 mg Q2H PRN IV PAIN 11/19/16 00:30 11/19/16 22:45 DC Butorphanol Tartrate (Stadol) 2 mg Q2H PRN IV PAIN 11/19/16 00:30 11/19/16 22:45 DC 11/19/16 04:24 Lidocaine 30 ml 30 ml ONCE PRN INJ EPISIOTOMY/TEARING 11/19/16 00:30 11/19/16 22:45 DC Oxytocin/Lactated Ringer's 500 ml @ 125 mls/hr ONCE -MAY REPEAT X1 IV 11/19/16 00:30 11/19/16 22:45 DC 11/19/16 22:05 Oxytocin/Lactated Ringer's 500 ml @ 125 mls/hr ONCE IV 11/19/16 00:30 11/19/16 22:46 DC Ibuprofen (Motrin) 600 mg ONCE PRN PO Mild Pain (Pain Score 1-3) 11/19/16 00:30 11/19/16 22:46 DC Acetaminophen/ Codeine Phosphate 2 tab 2 tab ONCE PRN PO Moderate to Severe Pain (4-10) 11/19/16 00:30 11/19/16 22:46 DC Lactated Ringer's 1,000 ml @ 2,000 mls/hr Q30M PRN IV PRE-EPIDURAL BOLUS 11/19/16 00:36 11/19/16 22:46 DC 11/19/16 07:45 Oxytocin/Lactated Ringer's 500 ml @ 0 mls/hr ONCE PRN IV For Hemorrhage Management 11/19/16 00:30 11/19/16 22:46 DC Methylergonovine Maleate (Methergine) 0.2 mg ONCE PRN IM VAGINAL BLEEDING 11/19/16 00:30 11/19/16 22:46 DC Carboprost Tromethamine (Hemabate) 250 mcg ONCE PRN IM VAGINAL BLEEDING 11/19/16 00:30 11/19/16 22:46 DC Misoprostol 1000 mcg 1,000 mcg ONCE PRN [place] VAGINAL BLEEDING 11/19/16 00:30 11/19/16 22:46 DC Fentanyl/ Ropivacaine 100 ml @ STK-MED ONCE .ROUTE 11/19/16 08:00 11/19/16 08:01 DC Oxytocin/Lactated Ringer's 500 ml @ 0 mls/hr Q0M IV 11/19/16 10:00 11/19/16 22:46 DC 11/19/16 10:33 Naloxone HCl (Narcan) 0.1 mg Q2M PRN IV FOR RESP RATE 8 OR LESS 11/19/16 11:00 11/19/16 22:46 DC Diphenhydramine HCl (Benadryl) 25 mg Q6H PRN IV ITCHING 11/19/16 11:00 11/19/16 22:46 DC Ondansetron HCl (Zofran Inj) 4 mg Q6H PRN IV NAUSEA AND/OR VOMITING 11/19/16 11:00 11/19/16 22:46 DC Fentanyl/ Ropivacaine 100 ml 100 ml EPIDURAL INFUSION EPI 11/19/16 11:00 11/19/16 22:46 DC 11/19/16 18:08 Ampicillin 100 ml @ 100 mls/hr ONCE ONCE IVPB 11/19/16 18:30 11/19/16 19:29 DC 11/19/16 18:45 Ampicillin 50 ml @ 100 mls/hr Q4 IVPB 11/19/16 21:00 11/19/16 22:46 DC Gentamicin Sulfate (Gentamicin) 50 ml @ 104 mls/hr Q8H IVPB 11/19/16 18:30 11/19/16 22:46 DC 11/19/16 19:20 Acetaminophen (Tylenol Supp) 650 mg ONCE ONCE [place] 11/19/16 19:00 11/19/16 19:01 DC 11/19/16 19:08 Lidocaine/ Epinephrine (Xylocaine 2%/ Epi) 30 ml STK-MED ONCE .ROUTE 11/19/16 19:29 11/19/16 19:30 DC Fentanyl 100 mcg 100 mcg STK-MED ONCE .ROUTE 11/19/16 19:30 11/19/16 19:31 DC Sodium Bicarbonate (Na Bicarb) 50 ml @ ud STK-MED ONCE .ROUTE 11/19/16 19:30 11/19/16 19:31 DC Phenylephrine HCl (Elijah-Synephrine Inj Syg) 500 mcg STK-MED ONCE .ROUTE 11/19/16 20:06 11/19/16 20:07 DC Dexamethasone (Decadron) 4 mg STK-MED ONCE .ROUTE 11/19/16 20:16 11/19/16 20:17 DC Morphine Sulfate (Duramorph) 10 mg STK-MED ONCE .ROUTE 11/19/16 20:34 11/19/16 20:35 DC Naloxone HCl (Narcan) 0.1 mg Q2M PRN IV FOR RESP RATE 8 OR LESS 11/19/16 21:00 11/20/16 20:35 DC Ketorolac Tromethamine (Toradol) 30 mg Q6H PRN IV PAIN 11/19/16 21:00 11/19/16 22:46 DC 11/19/16 22:07 Hydromorphone HCl (Dilaudid) 0.2 mg Q3H PRN IV PAIN LEVEL 1-5 11/19/16 21:00 11/20/16 20:35 DC Hydromorphone HCl (Dilaudid) 0.4 mg Q3H PRN IV PAIN LEVEL 6-10 11/19/16 21:00 11/20/16 20:35 DC Diphenhydramine HCl (Benadryl) 25 mg Q6H PRN IV ITCHING 11/19/16 21:00 11/20/16 20:35 DC Ondansetron HCl (Zofran Inj) 4 mg Q6H PRN IV NAUSEA AND/OR VOMITING 11/19/16 21:00 11/20/16 20:35 DC Zolpidem Tartrate (Ambien) 5 mg HS MAY REPEAT X 1 PRN PO INSOMNIA 11/19/16 21:00 11/20/16 20:35 DC Miscellaneous Information Duramorph: 4 mg Epidu... GIVEN XX 11/19/16 21:00 11/19/16 21:00 DC Lactated Ringer's 1,000 ml @ 125 mls/hr Q8H IV 11/19/16 22:42 11/20/16 17:08 Clindamycin HCl/ Dextrose 50 ml @ 50 mls/hr ONCE ONCE IV 11/19/16 23:00 11/19/16 23:59 DC 11/20/16 00:32 Gentamicin Sulfate 270 mg/ Sodium Chloride 106.75 ml @ 106.75 mls/hr ONCE IVPB 11/19/16 23:00 11/20/16 11:56 DC 11/20/16 01:39 Oxytocin/Lactated Ringer's 500 ml @ 125 mls/hr Q4H IV 11/19/16 22:42 11/20/16 06:41 DC 11/20/16 03:45 Acetaminophen/ Codeine Phosphate (Tylenol No.3) 1 tab Q4H PRN PO PAIN LEVEL 4-6 11/19/16 23:00 11/21/16 08:35 Ibuprofen (Motrin) 600 mg Q6 PO 11/20/16 00:00 11/21/16 05:21 Simethicone (Mylicon) 160 mg Q8H PRN PO DISTENSION/GAS/BLOATING 11/19/16 23:00 Lanolin ([id number]) 1 applic BEDSIDE MEDICATION PRN TOP BEDSIDE FOR IRMA TO NIPPLES 11/19/16 23:00 11/20/16 23:32 Measles/Mumps/ Rubella Vaccine Live 0.5 ml 0.5 ml ONCE ONCE SC* 11/22/16 09:00 11/22/16 09:01 Oxytocin/Lactated Ringer's 500 ml @ 0 mls/hr ONCE PRN IV For Hemorrhage Management 11/19/16 23:00 Methylergonovine Maleate (Methergine) 0.2 mg ONCE PRN IM VAGINAL BLEEDING 11/19/16 23:00 Carboprost Tromethamine (Hemabate) 250 mcg ONCE PRN IM VAGINAL BLEEDING 11/19/16 23:00 Misoprostol (Cytotec) 1,000 mcg ONCE PRN [place] VAGINAL BLEEDING 11/19/16 23:00 Prenat Multivit/ Men'S Garment Fitter/Iron/Folic Ac 1 tab 1 tab DAILY PO 11/20/16 09:00 11/21/16 08:40 Gentamicin Sulfate 50 ml @ 104 mls/hr Q8H IVPB 11/20/16 12:30 11/21/16 04:46 Clindamycin HCl/ Dextrose (Cleocin 900 Mg/ D5W (Pmx)) 50 ml @ 50 mls/hr Q6 IVPB 11/20/16 18:00 11/21/16 05:21 Ketorolac Tromethamine 30 mg 30 mg ONCE IV 11/20/16 12:30 11/23/16 12:29 11/20/16 12:38 Gentamicin Sulfate (Gentamicin) 50 ml @ 104 mls/hr Q8H IVPB 11/20/16 12:30 11/20/16 12:30 DC Senna (Senokot) 1 tab BID PRN PO CONSTIPATION 11/21/16 08:30 11/21/16 08:38 ANUEL FOX MD November 21, 2016 08:46
[2016-11-21] MEDS ORDERED: NA PHOSPHATE/BIPHOS 133 ML ENEMA PR ONE ×2 (09:00→17:00)
[2016-11-21] MEDS: KETOROLAC 30 MG INJ IV SCH (12:30)
[2016-11-21 15:18] VITALS: BP 93/63; PULSE 97; RESP 17
[2016-11-21 20:00] VITALS: BP 100/58; PULSE 90; RESP 18
[2016-11-22] MEDS: CLINDAMYCIN 900 MG/D5W (PMX) 50 ML IVPB SCH ×3 (00:31→12:00)
[2016-11-22] MEDS: IBUPROFEN 600 MG TAB PO SCH ×3 (00:31→12:05)
[2016-11-22 04:00] VITALS: BP 113/57; PULSE 82; RESP 18
[2016-11-22] MEDS: GENTAMICIN 80 MG/NS (PMX) 50 ML IVPB SCH ×2 (04:15→12:30)
[2016-11-22] MEDS: LACTATED RINGER'S 1,000 ML IV SCH (06:27)
[2016-11-22 08:00] VITALS: BP 108/75; PULSE 84; RESP 20
[2016-11-22] MEDS ORDERED: MEASLES,MUMPS,RUBELLA VACCINE INJ SC* ONE (09:00)
[2016-11-22] MEDS: MULTIVIT/MIN/FOLATE/IRON/PREN TAB PO SCH (09:05)
--- NOTE | 2016-11-22 09:20 | PD.PPDC ---
POWER LINEWORKER Discharge Instruction Condition Patient Condition: Good Diet Diet: Resume Regular Diet Activity/Restrictions Activity: Normal Activity May Shower Restrictions: No Exercising No Lifting No Driving No Sexual Activity Nothing in the Vagina No [place] No Tampons, douche Wound/Drain Care Instructions Wound/Drain Care Instructions: Remove Steri Strips in 1 week Follow-up Follow-up with Physician: 4, Day/Days Provider Information: Appointment clinic in 4 day to discontinue tara Return to clinic for SENIOR MANAGER [facility] Instructions: Fever greater than 101 OB Instructions: Breast Tenderness Depression Blurried Vision Headache Surgical Instructions: Incisional Drainage Incisional Redness ANUEL FOX MD November 22, 2016 09:20
--- NOTE | 2016-11-22 09:22 | DS ---
Date/Time of Note Date/Time of Note DATE: 11/22/16 TIME: 09:21 Discharge Summary Admission/Discharge Info Admit Date/Time November 19, 2016 at 00:28 Discharge Date/Time November 22, 2016 at 0 920 Final Diagnosis Post day 3 Patient Condition: Good Procedures Primary due to continue to failure to progress Hx of Present Illness Term in labor Hospital Course Uneventful satisfactory Home Meds Reported Medications Multivit/Min/Fol Ac/Iron/Pren* ( S*) 1 Tab Tab, 1 TAB PO DAILY, TAB 07/01/16 Primary Care Provider Care Physician No Primary Time spent on discharge: < 30 minutes ANUEL FOX MD November 22, 2016 09:22
[2016-11-22] MEDS: KETOROLAC 30 MG INJ IV SCH (12:30)
== END 2016-11-22 13:40 | disposition home or self-care (01) | DRG 765 ==
LOC: L-D 23:35 → OBT 23:35 → L-D 11-19 00:28 → PP1 11-19 23:54
PROVIDERS: ADMIT Obstetrics & Gynecology; ATTEND Obstetrics & Gynecology
PROC: 4A1HX4Z Monitoring of Products of Conception, Cardiac Electrical Activity, External Approach (ICD-10-PCS; 2016-11-19)
PROC: 10907ZC Drainage of Amniotic Fluid, Therapeutic from Products of Conception, Via Natural or Artificial Opening (ICD-10-PCS; 2016-11-19)
PROC: 4A033R1 Measurement of Arterial Saturation, Peripheral, Percutaneous Approach (ICD-10-PCS; 2016-11-19)
PROC: 10D00Z1 Extraction of Products of Conception, Low, Open Approach (ICD-10-PCS; principal; 2016-11-19 19:00)
DX: O48.0 Post-term pregnancy (principal); O41.1230 Chorioamnionitis, third trimester, not applicable or unspecified; O32.4XX0 Maternal care for high head at term, not applicable or unspecified; O69.81X0 Labor and delivery complicated by cord around neck, without compression, not applicable or unspecified; O76 Abnormality in fetal heart rate and rhythm complicating labor and delivery; O62.0 Primary inadequate contractions; Z3A.40 40 weeks gestation of pregnancy; Z37.0 Single live birth
CPT/HCPCS: 36415; 36600; 62319; 76815; 82803; 85025; 85610; 85730; 86592; 86900; 86901; 87040; 87070; 87086; 88307; 94760; 96360; 99464; G0463; J0290; J1100; J1580; J1885; J2274; J2370; J2405; J2590; J3010; J7120

== ENCOUNTER 2018-10-14 17:21 | Inpatient (IN) | payer MEDICAID ==
[~2018-10-14] VITALS: Ht 144.8 cm; Wt 65.6 kg
[~2018-10-14 17:21] MED LIST changes: +AMOX1TAB10 PO
[2018-10-14] MEDS ORDERED: CEFAZOLIN 2 GM/50 ML (PMX) 50 ML IVPB SCH (17:30)
[2018-10-14] MEDS ORDERED: OXYTOCIN 30 UNITS/LR 500 ML IV PRN (17:30)
[2018-10-14] MEDS ORDERED: CARBOPROST 250 MCG INJ IM PRN (17:30)
[2018-10-14] MEDS ORDERED: METHYLERGONOVINE 0.2 MG INJ IM PRN (17:30)
[2018-10-14] MEDS ORDERED: MISOPROSTOL 200 MCG TAB PR PRN (17:30)
[2018-10-14 17:31] VITALS: Ht 144.8 cm; Wt 65.6 kg
[2018-10-14] MEDS: LACTATED RINGER'S 1,000 ML IV SCH ×2 (18:16→19:11)
--- NOTE | 2018-10-14 18:56 | PREAC ---
Date/Time of Note Date/Time of Note DATE: 10/14/18 TIME: 18:55 Anesthesia Eval and Record Evaluation Time Pre-Procedure Interview DATE: 10/14/18 TIME: 18:55 Age 32 Sex female NPO: 8 hrs Preoperative diagnosis with previous C/S Planned procedure Repeat C/S Past Medical History Past Medical History: None Surgery & Anesthesia Issues No known issue Meds Anticoagulation: No Beta Jay within 24 hr: No Reason Beta Jay not given: Pt. not on B-Jay Active Scripts Amoxicillin/Potassium Clav (Amox-Clav 875-125 mg Tablet) 875-125 mg Tab, 1 TAB PO BID for 7 Days, #14 TAB Prov:LEANNA GRACE 08/04/18 Reported Medications Multivit/Min/Fol Ac/Iron/Pren* ( S*) 1 Tab Tab, 1 TAB PO DAILY, TAB 07/01/16 Current Medications Lactated Ringer's 1,000 ml @ 125 mls/hr Q8H IV Last administered on 10/14/18at 18:16; Admin Dose 125 MLS/HR; Start 10/14/18 at 17:29 Cefazolin Sodium/ Dextrose 50 ml @ 100 mls/hr ONCE IVPB ; Start 10/14/18 at 17:30 Oxytocin/Lactated Ringer's 500 ml @ 0 mls/hr ONCE PRN IV .VAGINAL BLEEDING; Start 10/14/18 at 17:30 Methylergonovine Maleate (Methergine) 0.2 mg ONCE PRN IM .VAGINAL BLEEDING; Start 10/14/18 at 17:30 Carboprost Tromethamine (Hemabate) 250 mcg ONCE PRN IM .VAGINAL BLEEDING; Start 10/14/18 at 17:30 Misoprostol (Cytotec) 1,000 mcg ONCE PRN [place] .VAGINAL BLEEDING; Start 10/14/18 at 17:30 Meds reviewed: Yes Allergies Coded Allergies: No Known Allergy (Unverified , 11/19/16) Allergies Reviewed: Yes Labs/Studies Labs Reviewed: Reviewed by anesthesiologist test: Positive Pre-procedure Exam Airway: Adequate mouth opening Mallampati: Mallampati II Teeth: Normal Lung: Normal Heart: Normal ASA Physical Status ASA physical status: 2 Emergency: None Planned Anesthetic Neuraxial: Spinal Planned Pain Management Sub-arachniod narcotics Pre-operative Attestations Prior to commencing anesthesia and surgery, the patient was re-evaluated, there was verification of: *The patient's identity *The results of appropriate recent lab work and preoperative vital signs *The above evaluation not changing prior to induction *Anesthetic plan, risk benefits, alternative and complications discussed with patient/family; questions answered; patient/family understands, accepts and wishes to proceed. GUILLERMO GRACE MD Oct 14, 2018 18:56
[2018-10-14] MEDS ORDERED: OXYTOCIN 30 UNITS/LR 500 ML IV ONE (20:40)
[2018-10-14] MEDS ORDERED: morphine SULFATE/PF (10 MG/10 ML) INJ ONE (20:41)
[2018-10-14] MEDS ORDERED: OXYTOCIN 10 UNIT INJ ONE ×2 (20:41→20:53)
[2018-10-14] MEDS ORDERED: METOCLOPRAMIDE 10 MG INJ ONE (20:41)
[2018-10-14] MEDS ORDERED: ONDANSETRON 4 MG INJ ONE (20:41)
[2018-10-14] MEDS ORDERED: EPHEDrine 25 MG/5 ML SYG ONE (20:53)
--- NOTE | 2018-10-14 20:57 | HP ---
Date/Time of Note Date/Time of Note DATE: 10/14/18 TIME: 20:53 OB - History Hx of Present Free Text/Dictation 32-year old with single intrauterine at 39 weeks with a JED of 10/21/2018 with previous delivery desires repeat delivery. She states good movement. She denies nausea, vomiting, shortness of breath, chest pain, headache, visual changes, vaginal bleeding or LOF. Chief Complaint: Scheduled for repeat delivery Last Menstrual Period: Jan 14, 2018 Estimated Due Date: Oct 21, 2018 : 2 Para: 1 Spontaneous : 0 Therapeutic : 0 Care: Good Care Ultrasounds: Normal mid trimester US Obstetrical Complications: None Past Family/Social History * Past Medical, Surgical, Family and Obstetric Histories reviewed from chart. Blood Type: A+ Rubella: immune RPR/VDRL: Negative GBS Status: Negative HBsAG: Negative OB Admission Exam Vital Signs Vital Signs Blood pressure 110/67, pulse rate 72/minutes, respiratory rate 16/minutes, temperature 98.6 Physical Exam HEENT: WNL Heart: Rhythm Normal Lungs: Clear Abdomen: WNL Extremities: Normal Membranes: Intact Heart Rate: 130's Accelerations: Accelerations Present Decelerations: No Decelerations Varibility: Moderate Contractions on Admission: None Last 72 hours Lab Results CBC & BMP 10/14/18 18:11 OB Assessment/Plan Other plan: 32 years old with single intrauterine at 39 weeks and previous delivery desires repeat delivery. She declined TOLAC. - FHR: No sign of metabolic acidosis- Category I - Continuous EFM, toco - CBC, blood type and screen - Analgesia options with R/B/A discussed in detail with patient - Epidural per patient request - Please see the orders - A+/Rubella: Immune - GBS: Negative The risk of delivery including but not limited to bleeding, infection, injury to other organs (bowel, bladder, ureter, vessels, nerves), injury to fetus, blood transfusion, blood transfusion related infection, risk of anesthesia, adhesion, needs for future , removal of uterus or any other indicated surgery was discussed with the patient and her family. She expressed understanding. All of her questions were answered. She signed the informed consent. PHYSICIAN'S VERIFICATION OF INFORMED CONSENT The patient was counseled regarding the procedure, its indications, risks, potential complications and alternatives and any questions were answered. Consent was obtained. PLANNED PROCEDURE/TREATMENT: delivery with possible using vacuum/forceps and any other indicated surgery PHYSICIAN'S VERIFICATION OF INFORMED CONSENT FOR BLOOD TRANSFUSION: There is a reasonable possibility that blood transfusion will be necessary as a result of the patient's procedure. I have discussed the following with the patient/patient's legal scheduling representative: An explanation of the benefits and risks of the transfusion of blood or blood products and the possible alternativ es. All questions have been answered to the patient's satisfaction. INFORMED CONSENT:The patient has been informed of: The nature of the proposed care, treatment, services, medications, interventions or procedures. Potential benefits, risks or side effects, including potential problems related to recuperation. The likelihood of achieving care treatment and service goals. Reasonable alternatives to the proposed care, treatment and service. The relevant risks, benefits and side effects related to alternatives, including the possible results of not receiving care, treatment and services. When indicated, any limitations on the confidentiality of information learned from or about the patient. If appropriate, the risks, benefits and alternatives of the drugs to be used for sedation/analgesia including moderate sedation. If appropriate, patient has been provided information on the risks, benefits and alternatives to the transfusion of blood and/or blood products. If appropriate, patient has been provided information regarding the Humberto Aster Blood Act. YADIRA PETERSON Oct 14, 2018 20:57
--- NOTE | 2018-10-14 22:43 | OPR ---
Operative Report Planned Procedure Procedure date Oct 14, 2018 Procedure(s) Repeat low transverse delivery Performed by see signature line Hand Embroiderer: ARIANA BRIAN MD Anesthesiologist: GUILLERMO GRACE MD Pre-procedure diagnosis 32-year old with single intrauterine at 39 weeks desires repeat delivery. She declined TOLAC [id number] Anesthesia Type: Smeaw2r spinal Post-Procedure Post-procedure diagnosis 1. Single intrauterine at 39 weeks 2. Previous delivery Findings 1. Normal uterus. 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 Normal fallopian tubes and ovaries 2. Viable male in cephalic presentation. 8 at one minute and 9 in 5 minutes. Weight: 8 pounds 7 ounces. Time of delivery: 21:14 3. Placenta with three vessel cord 4. Amniotic fluid - Clear Estimated Blood Loss: 500 - 600 mls Specimen(s) none Grafts/Implant(s) none Complication(s) none Pt Condition post procedure: stable Disposition: PACU Procedure Description INDICATION AND HISTORY: A 32-year old with single intrauterine at 39 weeks with previous delivery desires repeat delivery. The risk of delivery including but not limited to bleeding, infection, injury to other organs (bowel, bladder, ureter, vessels, nerves), injury to fetus, blood transfusion, blood transfusion related infection, risk of anesthesia, adhesion, needs for future , removal of uterus or any other indicated surgery was discussed with the patient and her family. She expressed understanding. All of her questions were answered. She signed the informed consent. DESCRIPTION OF OPERATION: The patient was taken to the operating room, where she was identified and the procedure was verified. The patient received two gram of Ancef 30 minutes prior to surgery. Spinal anesthesia was placed. The patient placed in the dorsal supine position with a left tilt. The heart rate was 140 bpm. The patient was then prepped and draped in the normal sterile fashion. A Pfannenstiel skin incision was made and carried down to the fascia with knife. The fascia was incised in the midline and the fascial incision was carried laterally with knife. The superior portion of the fascial incision was then grasped with Espinoza clamps and tented up and dissected off the underlying rectus muscle with sharp dissection. The lower portion of the fascial incision was then made in a similar fashion. The rectus muscle was and the peritoneum was entered. The peritoneal incision was then stretched and an Mir retractor was inserted. Then, an incision was made in the lower uterine segment in a transverse fashion with a knife and extended bluntly. The was delivered atraumatically in cephalic presentation with the above findings. The umbilical cord was clamped and cut. The neonatology resuscitation team was present and the baby was handed to them. A cord blood sample was obtained for further evaluation. The placenta and membrane, which appeared normal were Removed. The uterus was exteriorized and cleared of all clot and debris. The u terus was then closed in a two layer fashion with 0-Monocryl. At the time of closure, hemostasis was noted. The gutters were irrigated. The peritoneum was reapproximated with 3-0 *Vicryl. The muscle was reapproximated with 3-0 Vicryl. The fascia was approximated with 0-Vicryl in a running fashion. The subcutaneous tissue was re approximated with 3-0 vicryl. The skin was closed with 4-0 Monocryl. All instruments, sponges and needle counts were correct x3. The patient tolerated the procedure well. She transferred to the recovery room in stable condition. YADIRA PETERSON Oct 14, 2018 22:43
[2018-10-14] MEDS ORDERED: NALOXONE (0.4 MG/ML) INJ IV PRN (23:00)
[2018-10-14] MEDS ORDERED: DIPHENHYDRAMINE 50 MG INJ IV PRN (23:00)
[2018-10-14] MEDS ORDERED: EPHEDrine SULFATE 50 MG/5 ML SYG IV PRN (23:00)
[2018-10-14] MEDS ORDERED: ONDANSETRON 4 MG INJ IV PRN (23:00)
[2018-10-14] MEDS ORDERED: morphine SULFATE/PF (10 MG/10 ML) INJ SPINAL ONE (23:00)
[2018-10-14] MEDS ORDERED: morphine 2 MG INJ IV PRN ×2 (23:00)
[2018-10-14] MEDS: KETOROLAC 30 MG INJ IV PRN (23:12)
[2018-10-15 00:15] VITALS: BP 100/59; PULSE 59; RESP 18
[2018-10-15] MEDS ORDERED: OXYTOCIN 30 UNITS/LR 500 ML IV SCH (00:15)
[2018-10-15] MEDS: DEXTROSE 5%-LR 1,000 ML IV SCH ×3 (00:15→16:15)
[2018-10-15] MEDS ORDERED: CARBOPROST 250 MCG INJ IM PRN (00:30)
[2018-10-15] MEDS ORDERED: MISOPROSTOL 200 MCG TAB PR PRN (00:30)
[2018-10-15] MEDS ORDERED: MAGNESIUM HYDROXIDE 30ML CUP PO PRN (00:30)
[2018-10-15] MEDS ORDERED: METHYLERGONOVINE 0.2 MG TAB PO PRN (00:30)
[2018-10-15] MEDS ORDERED: LANOLIN HPA 1 PKT TOP PRN (00:30)
[2018-10-15] MEDS ORDERED: OXYTOCIN 30 UNITS/LR 500 ML IV PRN (00:30)
[2018-10-15] MEDS ORDERED: METHYLERGONOVINE 0.2 MG INJ IM PRN (00:30)
[2018-10-15 04:07] VITALS: BP 100/48; PULSE 56; RESP 19
[2018-10-15] MEDS: KETOROLAC 30 MG INJ IV PRN ×3 (05:52→20:06)
[2018-10-15 08:00] VITALS: BP 109/66; PULSE 84; RESP 20
--- NOTE | 2018-10-15 09:01 | PAC ---
Date/Time of Note Date/Time of Note DATE: 10/15/18 TIME: 09:00 Post-Anesthesia Notes Post-Anesthesia Note Last documented vital signs Vital Signs Date Temp Pulse Resp B/P (MAP) Pulse Ox O2 O2 Flow FiO2 Time Delivery Rate 10/15/18 97.5 56 19 100/48 98 Room Air 04:07 (65) Activity: WNL Respiratory function: WNL Cardiovascular function: WNL Mental status: Baseline Pain reasonably controlled: Yes Hydration appropriate: Yes Nausea/Vomiting absent: Yes GUILLERMO RGACE MD Oct 15, 2018 09:01
--- NOTE | 2018-10-15 09:03 | OPPN ---
Date/Time of Note Date/Time of Note DATE: 10/15/18 TIME: 09:01 Anesthesia Follow up Anesthesia Follow up Last documented vital signs Vital Signs Date Temp Pulse Resp B/P (MAP) Pulse Ox O2 O2 Flow FiO2 Time Delivery Rate 10/15/18 97.5 56 19 100/48 98 Room Air 04:07 (65) Comments Postoperative pain in good control with spinal duramorph. Vital signs stable. No specific complaint from patient. GUILLERMO GRACE MD Oct 15, 2018 09:03
[2018-10-15] MEDS: SENNA/DOCUSATE NA (8.6MG/50MG) TAB PO SCH ×2 (09:23→20:07)
[2018-10-15] MEDS ORDERED: DIPHTH/TET/ACEL PERTUSS (ADULT) 0.5 ML VIAL IM* ONE (11:00)
[2018-10-15] MEDS: LACTATED RINGER'S 1,000 ML IV SCH ×2 (12:02→16:50)
[2018-10-15] MEDS: HYDROCODONE/APAP (5/325) TAB GTB SCH ×2 (14:00→22:37)
[2018-10-15 15:30] VITALS: BP 99/50; PULSE 73; RESP 18
[2018-10-15 20:00] VITALS: BP 97/55; PULSE 75; RESP 18
--- NOTE | 2018-10-15 22:35 | PN ---
Date/Time of Note Date/Time of Note DATE: 10/15/18 TIME: 22:33 OB Subjective Subjective Subjective POD#1 Patient is doing well. She denies nausea, vomiting, shortness of breath, chest pain, headache. She has been ambulating without difficulty, tolerating regular diet. Pain is well controlled on current medications OB Objective Objective Objective Vital Signs Date Temp Pulse Resp B/P (MAP) Pulse Ox O2 O2 Flow FiO2 Time Delivery Rate 10/15/18 99.0 75 18 97/55 (69) 100 Room Air 20:00 General: AAO X 3, comfortable, NAD, appropriate mood and affect. Heart: RRR +S1, +S2, no murmurs. Lungs: Clear to auscultation (B/L), no rales, ronchi or wheezing. ABD: +BS. Soft, non-tender. Uterus 2 cm below umbilicus Incision: Clear, dry, intact. No erythema, drainage or induration. Flank: No CVA tenderness (B/L) LE: Mild edema. No clubbing, cyanosis, thigh or calf tenderness (B/L). Homans 'sign is negative Laboratory Tests Test 10/14/18 18:11 10/15/18 05:47 10/15/18 07:42 White Blood Count 7.4 10^3/ul 8.4 10^3/ul Red Blood Count 4.20 10^6/ul 3.77 10^6/ul Hemoglobin 13.4 g/dl 11.8 g/dl Hematocrit 39.8 % 35.7 % Mean Corpuscular Volume 94.8 fl 94.7 fl Mean Corpuscular 31.9 pg 31.3 pg Hemoglobin Mean Corpuscular 33.7 g/dl 33.1 g/dl Hemoglobin Concent Red Cell Distribution 13.7 % 13.8 % Width Platelet Count 172 10^3/UL 147 10^3/UL Mean Platelet Volume 12.5 fl 12.0 fl Immature Granulocytes % 0.500 % 0.500 % Neutrophils % 66.5 % 77.6 % Lymphocytes % 25.9 % 15.9 % Monocytes % 6.4 % 5.6 % Eosinophils % 0.3 % 0.2 % Basophils % 0.4 % 0.2 % Nucleated Red Blood Cells 0.0 /100WBC 0.0 /100WBC % Immature Granulocytes # 0.040 10^3/ul 0.040 10^3/ul Neutrophils # 4.9 10^3/ul 6.6 10^3/ul Lymphocytes # 1.9 10^3/ul 1.3 10^3/ul Monocytes # 0.5 10^3/ul 0.5 10^3/ul Eosinophils # 0.0 10^3/ul 0.0 10^3/ul Basophils # 0.0 10^3/ul 0.0 10^3/ul Nucleated Red Blood Cells 0.0 10^3/ul 0.0 10^3/ul # Prothrombin Time 12.3 Sec Prothrombin Time Ratio 1.0 INR International 0.90 Normalized Ratio Activated 27.7 Sec Partial Thromboplast Time Rapid Plasma Reagin NONREACTIVE NONREACTIVE Lab Scanned Report REFERENCE LAB [id number] OB Assessment/Plan Other plan: 32-year-old 2 para 2001 s/p repeat delivery at 39 weeks. POD#1 - AF, VSS - Contraception methods with R/B/A/FR discussed - Continue care YADIRA PETERSON Oct 15, 2018 22:35
[2018-10-16] MEDS: DEXTROSE 5%-LR 1,000 ML IV SCH (00:15)
[2018-10-16] MEDS: LACTATED RINGER'S 1,000 ML IV SCH (01:29)
[2018-10-16 04:20] VITALS: BP 98/55; PULSE 90
[2018-10-16] MEDS: HYDROCODONE/APAP (5/325) TAB GTB SCH ×3 (05:05→21:59)
[2018-10-16] MEDS: IBUPROFEN 800 MG TAB PO SCH ×3 (05:06→21:59)
[2018-10-16 07:50] VITALS: BP 80/52; PULSE 65; RESP 18
[2018-10-16] MEDS: SENNA/DOCUSATE NA (8.6MG/50MG) TAB PO SCH ×2 (08:16→20:52)
[2018-10-16] MEDS: HYDROCODONE/APAP (5/325) TAB NGT PRN (08:17)
[2018-10-16 15:27] VITALS: BP 95/62; PULSE 85; RESP 18
--- NOTE | 2018-10-16 17:01 | PN ---
Date/Time of Note Date/Time of Note DATE: 10/16/18 TIME: 16:59 OB Subjective Subjective Subjective flatus pos but no bm yet OB Objective Objective Objective VSS afebrile abdomen soft wounf dry lochia min calf neg OB Assessment/Plan Other Assessment: s/p c/s #2 Plan: Expectant Management, Other (d/s home in am) ARIANA BRIAN MD Oct 16, 2018 17:01
[2018-10-16 20:05] VITALS: BP 113/55; PULSE 78; RESP 18
[2018-10-17 04:05] VITALS: BP 97/55; PULSE 78; RESP 18
[2018-10-17] MEDS: HYDROCODONE/APAP (5/325) TAB GTB SCH ×2 (05:22→13:14)
[2018-10-17] MEDS: IBUPROFEN 800 MG TAB PO SCH ×2 (05:23→13:14)
[2018-10-17 07:50] VITALS: BP 118/59; PULSE 56; RESP 18
[2018-10-17] MEDS ORDERED: DIPHTH/TET/ACEL PERTUSS (ADULT) 0.5 ML VIAL IM* ONE (09:00)
[2018-10-17] MEDS ORDERED: MEASLES,MUMPS,RUBELLA VACCINE INJ SC* ONE (09:00)
[2018-10-17] MEDS: SENNA/DOCUSATE NA (8.6MG/50MG) TAB PO SCH (09:16)
[2018-10-17] MEDS: HYDROCODONE/APAP (5/325) TAB NGT PRN (11:15)
[2018-10-17 15:30] VITALS: BP 101/68; PULSE 76; RESP 18
--- NOTE | 2018-10-17 17:15 | PN ---
Date/Time of Note Date/Time of Note DATE: 10/17/18 TIME: 17:13 OB Subjective Subjective Subjective POD#2 Patient is doing well. She denies nausea, vomiting, shortness of breath, chest pain, headache. She has been ambulating without difficulty, tolerating regular diet. Pain is well controlled on current medications OB Objective Objective Objective VS - Last 72 Hours, by Label Date Temp Pulse Resp B/P (MAP) Pulse Ox O2 O2 Flow FiO2 Time Delivery Rate 10/17/18 98.5 76 18 101/68 Room Air 15:30 (79) 10/17/18 98.3 56 18 118/59 Room Air 07:50 (78) 10/17/18 98.8 78 18 97/55 (69) Room Air 04:05 10/16/18 99.0 78 18 113/55 Room Air 20:05 (74) 10/16/18 98.7 85 18 95/62 (73) Room Air 15:27 10/16/18 98.1 65 18 80/52 (61) Room Air 07:50 10/16/18 98.0 90 98/55 (69) Room Air 04:20 10/15/18 99.0 75 18 97/55 (69) 100 Room Air 20:00 10/15/18 98.4 73 18 99/50 (66) Room Air 15:30 10/15/18 98.1 84 20 109/66 Room Air 08:00 (80) 10/15/18 97.5 56 19 100/48 98 Room Air 04:07 (65) 10/15/18 98.1 59 18 100/59 99 Room Air 00:15 (73) General: AAO X 3, comfortable, NAD, appropriate mood and affect. ABD: +BS. Soft, non-tender. Uterus 2 cm below umbilicus Incision: Clear, dry, intact. No erythema, drainage or induration. Flank: No CVA tenderness (B/L) LE: Mild edema. No clubbing, cyanosis, thigh or calf tenderness (B/L). Homans 's ign is negative OB Assessment/Plan Other plan: 32-year-old 2 para 2002 s/p repeat delivery at 39 weeks. POD#2 - AF, VSS - Contraception methods with R/B/A/FR discussed - Continue care - Discharge home tomorrow - Rx and instruction given - Follow up in one and 6 weeks YADIRA PETERSON Oct 17, 2018 17:15
--- NOTE | 2018-10-17 17:16 | DS ---
Date/Time of Note Date/Time of Note DATE: 10/17/18 TIME: 17:15 Obstetrical Discharge Record Final Diagnosis Final Diagnosis: Term delivered Other Final Diagnosis 32-year-old 2 para 2002 s/p repeat delivery at 39 weeks. POD#2. course is unremarkable. She is ambulating and tolerating regular diet. Pain is controlled on current medication. She is voiding without difficulty. - AF, VSS - Contraception methods with R/B/A/FR discussed - Continue care - Discharge home tomorrow - Rx and instruction given - Follow up in one and 6 weeks Section Section: Repeat Condition on Discharge Physical Assessment Last Vitals: Vital Signs Date Temp Pulse Resp B/P (MAP) Pulse Ox O2 O2 Flow FiO2 Time Delivery Rate 10/17/18 98.5 76 18 101/68 Room Air 15:30 (79) 10/15/18 100 20:00 Voiding: Yes Bowel Movement: Yes Breast: Soft, non-tender Fundus: Firm Calf Tenderness: No Patient Condition: Stable YADIRA PETERSON Oct 17, 2018 17:16
--- NOTE | 2018-10-18 19:00 | DELSUM ---
Delivery Summary A-C Datetime Report Generated by CPN: 10/18/2018 19:00 DELIVERY PERSONNEL Physicist Nuclear: [place], Jenna MATERNAL INFORMATION Delivery Anesthesia: Spinal Medications in Delivery: SEE ANESTHESIA FLOWSHEET Delivery QBL (ml): 500 Placenta Cultured: No Maternal Complications: None LABOR SUMMARY EDC: 10/21/2018 00:00 No. Babies in Womb: 1 Attempted: No Labor Anesthesia: None LABOR INFORMATION Reason for Induction: Not Applicable Oxytocin: N/A Group B Beta Strep: Negative Antibiotics # of Doses: 1 Antibiotics Time of Last Dose: 10/14/2018 20:39 Steroids Given: None Reason Steroids Not Administered: Not Applicable MEMBRANES Membranes Rupture Method: Artificial Rupture of Membranes: 10/14/2018 21:13 Length of Rupture (hr): 0.02 Amniotic Fluid Color: Clear Amniotic Fluid Amount: Moderate Amniotic Fluid Odor: Normal STAGES OF LABOR Stage 3 hr: 0 Stage 3 min: 1 CSECTION DELIVERY Primary Indication: Repeat Elective Secondary Indication: N/A CSection Urgency: Non Elective CSection Incidence: Repeat Labor: No Labor Elective: Nonelective CSection Incision: Lower Uterine Transverse BABY A INFORMATION Delivery Date/Time: 10/14/2018 21:14 Method of Delivery: Born in Route : No : N/A Forceps: N/A Vacuum Extraction: N/A Shoulder Dystocia : N/A SHOULDER DYSTOCIA BABY A Infant Delivery Date/Time: 10/14/2018 21:14 PRESENTATION/POSITION BABY A Presentation: Cephalic Cephalic Presentation: Vertex Vertex Position: Left Occipital Posterior Breech Presentation: N/A PLACENTA INFORMATION BABY A Placenta Delivery Time : 10/14/2018 21:15 Placenta Method of Delivery: Manual Removal Placenta Status: Delivered SCORES BABY A Heart Rate 1 min: >100 bpm Resp Effort 1 min: Good Cry Reflex Irritability 1 min: Cough/Sneeze/Pulls Away Muscle Tone 1 min: Active Motion Color 1 min: Blue/Pale Resuscitation Effort 1 min: Tactile Stimulation SCORE 1 MIN: 8 Heart Rate 5 min: >100 bpm Resp Effort 5 min: Good Cry Reflex Irritability 5 min: Cough/Sneeze/Pulls Away Muscle Tone 5 min: Active Motion Color 5 min: Body [place], Extremit Blue Resuscitation Effort 5 min: Tactile Stimulation; PPV/NCPAP SCORE 5 MIN: 9 INFANT INFORMATION BABY A Gestational Age at Delivery: 39.0 Gestational Status: Full Term- 39- 40.6 Weeks Outcome : Liveborn Infant Condition : Stable Infant Sex: Male IDENTIFICATION/MEDS BABY A ID Band Number: [id number] ID Band Location: Right Leg; Left Arm Sensor Applied: Yes Sensor Number: [id number] Sensor Location : Cord Clamp Vitamin K Given : Not Given Erythromycin Given: Not Given WEIGHT/LENGTH BABY A Infant Birthweight (gm): 3820 Infant Weight (lb): 8 Weight (oz): 7 Length (in): 20.00 Infant Length (cm): 50.80 CORD INFORMATION BABY A No. Cord Vessels: 3 Nuchal Cord : Around Neck x1, Loose Cord Blood Taken: Yes Suction: Mouth; Nose ASSESSMENT BABY A Infant Complications: None Physical Findings at Delivery: Within Normal Limits Infant Respirations: Appears Normal Air Carrier Inspector/ALS Called : No Infant Care By: CLINTON MARIE Transferred To: Remains with Mother
== END 2018-10-17 18:50 | disposition home or self-care (01) | DRG 788 ==
LOC: L-D 17:21 → PP1 10-15 00:24
PROVIDERS: ADMIT Obstetrics & Gynecology; ATTEND Obstetrics & Gynecology
PROC: 10D00Z1 Extraction of Products of Conception, Low, Open Approach (ICD-10-PCS; principal; 2018-10-14 19:30)
DX: O34.211 Maternal care for low transverse scar from previous cesarean delivery (principal); Z3A.39 39 weeks gestation of pregnancy; Z37.0 Single live birth
CPT/HCPCS: 85025; 85610; 85730; 86592; 86850; 86900; 86901; 99464; J0690; J1885; J2274; J2405; J2590; J2765; J7120; J7121